=== PATIENT | female | born 1970 | race Caucasian/White ===

== ENCOUNTER 2020-11-19 06:08 | Emergency (ER) | payer OTHER, BC, SELFPAY ==
--- NOTE | ~2020-11-19 | XR_ITS ---
EXAMINATION: XR abdomen/kub 1V DATE: 11/19/2020 07:36 INDICATION: Right flank pain and recent urinary tract infection TECHNIQUE: A supine view of the abdomen on 2 radiographs was obtained. COMPARISON: CT dated 11/19/2020 FINDINGS: There is excreted contrast in the bilateral renal collecting systems, ureters and bladder from the re cent contrast enhanced CT. There is persistent mild right hydroureteronephrosis extending to the uret erovesicular junction where a 2 mm stone was seen on prior CT . The stone is unable to be distinguish ed from the surrounding contrast on the current study. No left-sided hydronephrosis or hydroureter. P ostoperative change of prior sleeve gastrectomy with suture line in the left upper quadrant. Normal b owel gas pattern. Mild lumbar levocurvature with mild spondylosis. IMPRESSION: 1. Mild right hydroureteronephrosis secondary to obstructing 2 mm stone at the ureterovesicular junct ion better appreciated on the immediately prior CT. Reviewed, dictated and finalized at location A. IMPRESSION: 1. Mild right hydroureteronephrosis secondary to obstructing 2 mm stone at the ureterovesicular junction better appreciated on the immediately prior CT.
--- NOTE | ~2020-11-19 | CT_ITS ---
EXAMINATION: CT abdomen pelvis w con DATE: 11/19/2020 07:26 INDICATION: Right-sided abdominal pain and hematuria post fall TECHNIQUE: Computed tomography (CT) of the abdomen and pelvis was performed without intravenous contr ast. Automated exposure control and iterative reconstruction technique were employed. The dose-length product was 694.03 mGy-cm. COMPARISON: None FINDINGS: Small fat-containing Bochdalek hernia at the left lung base. Lung bases are clear. Heart size is norm al. No pericardial or pleural effusion. Small sliding-type hiatal hernia. Postoperative change of manolo or sleeve gastrectomy with suture line along the greater curvature of the stomach. Liver, gallbladder , spleen, pancreas, bilateral adrenal glands and left kidney are normal. There is mild right hydroure teronephrosis extending to a 2 mm stone at the right ureterovesicular junction. There is adjacent mil d wall thickening in the right trigonal region of the bladder is likely inflammatory in etiology rela lorna to the presence of the obstructing stone. 5 mm cyst at the upper pole of the right kidney. There are few scattered diverticula in the distal descending and proximal sigmoid colon without adjacent in flammatory change to suggest diverticulitis. Small bowel and appendix are normal. Fibroid uterus incl uding 3.8 cm fibroid at the fundus and calcified likely degenerated fibroid at the anterior wall. 2 c m left adnexal cyst. No free intraperitoneal gas or fluid. No pathologically enlarged abdominal or pe lvic lymphadenopathy. Tiny fat-containing umbilical hernia. Mild lumbar levocurvature with mild spond ylosis. IMPRESSION: 1. Obstructing 2 mm stone at the right ureterovesicular junction with mild right hydroureteronephrosi s. 2. Small sliding-type hiatal hernia postoperative change of likely sleeve gastrectomy. 3. Fibroid uterus. Reviewed, dictated and finalized at location A. IMPRESSION: 1. Obstructing 2 mm stone at the right ureterovesicular junction with mild righ t hydroureteronephrosis. 2. Small sliding-type hiatal hernia postoperative change of likely sleeve gastr ectomy. 3. Fibroid uterus.
--- NOTE | ~2020-11-19 | XR_ITS ---
EXAMINATION: [id number] DATE: 11/19/2020 07:36 INDICATION: Right-sided rib pain 3 weeks post fall TECHNIQUE: PA view of the chest and 3 views of the right ribs were obtained. COMPARISON: Chest radiograph dated 09/17/2016 FINDINGS: No rib fractures identified. No pneumothorax. No focal airspace opacities, pleural effusion or pulmon misael edema. Cardiomediastinal silhouette is normal. Contrast opacification of the renal collecting sy stems demonstrating mild right hydroureteronephrosis which on CT secondary to 2 mm stone at the right ureterovesicular junction. Postoperative changes with suture line in the left upper quadrant likely related to prior sleeve gastrectomy. IMPRESSION: 1. No rib fracture or acute cardiopulmonary disease. 2. Mild right hydroureteronephrosis with 2 mm obstructing stone at the ureterovesicular junction seen on prior CT . See separate CT report for further detail. Reviewed, dictated and finalized at location A. IMPRESSION: 1. No rib fracture or acute cardiopulmonary disease. 2. Mild right hydroureteronephrosis with 2 mm obstructing stone at the ureterov esicular junction seen on prior CT . See separate CT report for further detail.
[2020-11-19 06:15] VITALS: BP 138/89; PULSE 99; RESP 12; TEMP 36.6; O2SAT 98
[2020-11-19 06:35] LABS: Basophils Absolute Auto 0.1 K/mm3 (0.0-0.1); Basophils Percent Auto 0.8 % (0.2-1.2); Eosinophils Absolute Auto 0.3 K/mm3 (0-0.3); Eosinophils Percent Auto 5.2 % (0-4.4); Hematocrit 43.8 % (37.0-47.0); Hemoglobin 15.2 g/dL (12.0-15.0); Immature Granulocyte Absolute 0.01 K/mm3 (0.00-0.031); Immature Granulocyte Percent A 0.2 % (0-0.5); Lymphocytes Absolute Auto 2.17 K/mm3 (0.9-3.2); Lymphocytes Percent Auto 36.1 % (18.3-44.2); Mean Corpuscular HGB Conc 34.7 g/dl (32-36); Mean Corpuscular Volume 92.2 fl (80-100); Mean Platelet Volume 9.8 fl (7.4-10.4); Monocytes Absolute Auto 0.4 K/mm3 (0.1-0.6); Monocytes Percent Auto 7.2 % (2.6-8.5); Neutrophils Percent Auto 50.5 % (45.5-73.1); Platelet Count Result 268 k/mm3 (150-375); Red Blood Count 4.75 M/mm3 (4.2-5.4); Red Cell Distribution Width 11.9 % (11.5-14.5)
[2020-11-19 06:42] LABS: Add Urine Microscopic? YES; Appearance Urine Cloudy (Clear); Bacteria Urine Trace /hpf; Bilirubin Urine Negative (Negative); Blood Urine 1+ (Negative); Color Urine Amber (Yellow); Glucose Urine UA Negative (Negative); Ketones Urine Negative (Negative); Leukocyte Esterase Ur Negative LEU/UL (Negative); Mucus Urine Heavy /lpf; Nitrate Urine Negative (Negative); Protein Urine 3+ mg/dL (Negative); RBC Urine >75 /hpf (0-2); Specific Grav Ur 1.026 (1.001-1.035); Squamous Epithelial Cell Urine Moderate /hpf (Few); Urobilinogen Urine Negative mg/dL (<2.0)
[2020-11-19 06:44] LABS: Alanine Aminotransferase 19 U/L (4-35); Albumin Level 4.3 g/dL (3.5-5.1); Alkaline Phosphatase 79 U/L (38-126); Anion Gap 4 mmol/L (8-16); Aspartate Amino Transferase 31 U/L (14-36); Blood Urea Nitrogen 14 mg/dL (7-17); Calcium 9.6 mg/dL (8.4-10.2); Carbon Dioxide 31 mmol/L (22-30); Chloride 104 mmol/L (98-107); Estimated CRCL calculation 86 ml/min; Estimated Glomerular Filt Rate > 60; Glucose 106 mg/dL (65-105); Lipase 75 U/L (23-300); Potassium 3.3 mmol/L (3.4-5.0); Sodium 139 mmol/L (137-145)
--- NOTE | 2020-11-19 06:45 | ED.ABDPAIN ---
HPI - Abdominal Pain General Chief Complaint: Abdominal Pain <Miranda Luciano MD - Last Filed: 11/19/20 07:31> Stated Complaint: uti for last 2 weeks <Miranda Luciano MD - Last Filed: 11/19/20 07:31> Time Seen by Provider: 11/19/20 06:35 <Miranda Luciano MD - Last Filed: 11/19/20 07:31> Source: patient <Miranda Luciano MD - Last Filed: 11/19/20 07:31> Mode of arrival: ambulatory <Miranda Luciano MD - Last Filed: 11/19/20 07:31> Limitations: no limitations <Miranda Luciano MD - Last Filed: 11/19/20 07:31> History of Present Illness HPI narrative: This is a 50 year old female who presents for evaluation of UTI with right flank pain. She complains of right flank pain and dysuria started 2 weeks ago. She also reports hematuria at that time but that has cleared. She was treated with macrobid for 3 days , and she was then switched to cipro because she did not have any improvement. She has continued to have right flank pain with dysuria so she was evaluated by her PCP on Thursday. She was restarted on macrobid and she has been taking tylenol for her pain. This morning her pain became worse and her pain has moved to her right lower abdomen. She denies vomiting, fever or chills. She also mentions she fell onto her right side 3 weeks ago after trip down one step. <Miranda Luciano MD - Last Filed: 11/19/20 07:31> Related Data Home Medications: Home Medications Medication Instructions Recorded Confirmed fluoxetine mg 11/19/20 fluticasone propionate INTRANASAL 11/19/20 omeprazole 11/19/20 ursodiol 11/19/20 <Miranda Luciano MD - Last Filed: 11/19/20 07:31> Allergies/Adverse Reactions: Allergies Allergy/AdvReac Type Severity Reaction Status Date / Time terbinafine Allergy Unknown rash Verified 11/19/20 06:41 <Miranda Luciano MD - Last Filed: 11/19/20 07:31> Review of Systems Review of Systems: All systems reviewed & are unremarkable except as noted in HPI and below <Miranda Luciano MD - Last Filed: 11/19/20 07:31> Constitutional: Constitutional: Denies chills and Denies fever(s) <Miranda Luciano MD - Last Filed: 11/19/20 07:31> Respiratory: Respiratory: Denies cough and Denies dyspnea <Miranda Luciano MD - Last Filed: 11/19/20 07:31> Gastrointestinal: Gastrointestinal: Reports abdominal pain, Denies diarrhea, Denies nausea and Denies vomiting <Miranda Luciano MD - Last Filed: 11/19/20 07:31> Genitourinary: Genitourinary: Reports hematuria, Reports nocturia and Reports dysuria <Miranda Luciano MD - Last Filed: 11/19/20 07:31> Musculoskeletal: Musculoskeletal: Reports back pain <Miranda Luciano MD - Last Filed: 11/19/20 07:31> [facility], [facility] Past Medical History Medical History: Medical History (Updated 11/19/20 @ 08:42 by Roman Molina MD) Patient denies medical problems <Miranda Luciano MD - Last Filed: 11/19/20 07:31> Surgical History Surgical History: Surgical History (Updated 11/19/20 @ 06:46 by Miranda Luciano MD) History of sleeve gastrectomy <Miranda Luciano MD - Last Filed: 11/19/20 07:31> Family History Family History: Family History (Updated 12/17/16 @ 10:12 by DOCTOR UNKNOWN) Grandparent Diabetes mellitus Cerebrovascular accident Family history of malignant neoplasm Carcinoma of colon Family history of congestive heart failure <Miranda Luciano MD - Last Filed: 11/19/20 07:31> Social History Social History: Social History Smoking status: Former smoker Second hand tobacco smoke exposure: No Smoking end date: 07/13/10 Alcohol intake: current <Miranda Luciano MD - Last Filed: 11/19/20 07:31> Exam Const: General: no acute distress and alert <Miranda Luciano MD - Last Filed: 11/19/20 07:31> Orientation/consciousness: patient oriented x3 <Miranda Luciano MD - Last Filed: 11/19/20 07:31> Eyes: EOM: EOMs intact yandy
[2020-11-19] MEDS: ONDANSETRON INJ 4 MG/2 ML VIAL IV PUSH (06:51)
[2020-11-19] MEDS: MORPHINE SULFATE (*CRX) 4 MG/ML INJ IV PUSH (06:53)
[2020-11-19] MEDS: LACTATED RINGERS 1,000 ML 999 ML IV CONT (06:56)
[2020-11-19 07:35] VITALS: BP 156/84; PULSE 69; RESP 17; O2SAT 98
[2020-11-19 08:52] VITALS: BP 131/76; PULSE 57; RESP 18; O2SAT 97
== END 2020-11-19 08:53 | disposition home or self-care (01) ==
PROVIDERS: General Practice; Emergency Provider Emergency Medicine; PCP Nurse Practitioner Family
DX: N13.2 Hydronephrosis with renal and ureteral calculous obstruction (principal); R31.9 Hematuria, unspecified; Z98.84 Bariatric surgery status; Z87.891 Personal history of nicotine dependence; D25.9 Leiomyoma of uterus, unspecified; K44.9 Diaphragmatic hernia without obstruction or gangrene
CPT/HCPCS: 36415; 71101; 74018; 74177; 80053; 81001; 81025; 83690; 85025; 87086; 96361; 96374; 96375; 99284; J2270; J2405; J7120; Q9967